=== PATIENT | male | born 1980 | race Two or more races ===

== ENCOUNTER 2023-09-19 10:02 | Outpatient (CLI) | payer OTHER | END 2023-09-19 10:03 | disposition home or self-care (01) | LOC: DI 10:02 | PROVIDERS: ATTEND Internal Medicine | DX: I63.9 Cerebral infarction, unspecified (principal) | CPT/HCPCS: 93307 ==

== ENCOUNTER 2023-09-23 14:19 | Outpatient (CLI) | payer OTHER ==
--- NOTE | 2023-09-23 16:53 | Ultrasound Report ---
PROCEDURE: Carotid Doppler Complete INDICATIONS: CVA TECHNIQUE: Color and pulse Doppler interrogation was performed of both carotid systems, with image documentation and velocity measurements. COMPARISON: None. FINDINGS: Right side: Brachial blood pressure: 123/82 mm Hg. Common carotid artery peak systolic velocity: 122 cm/sec. Internal carotid artery peak systolic velocity: 101 cm/sec. Internal carotid artery end diastolic velocity: 45 cm/sec. External carotid artery peak systolic velocity: 130 cm/sec. ICA/CCA peak systolic ratio: 0.8 . Dee scale imaging description: No visualized plaque Percent internal carotid artery stenosis: No hemodynamically significant stenosis. Vertebral artery: Flow direction is antegrade. Left side: Brachial blood pressure: 142/96 mm Hg. Common carotid artery peak systolic velocity: 87 cm/sec. Internal carotid artery peak systolic velocity: 95 cm/sec. Internal carotid artery end diastolic velocity: 42 cm/sec. External carotid artery peak systolic velocity: 97 cm/sec. ICA/CCA peak systolic ratio: 1 . Dee scale imaging description: No significant atherosclerotic plaque. Percent internal carotid artery stenosis: No hemodynamically significant stenosis. Vertebral artery: Flow direction is antegrade. IMPRESSION: 1. In the right internal carotid artery, there is no hemodynamically significant stenosis based on pe ak systolic velocity criteria. 2. In the left internal carotid artery, there is no hemodynamically significant stenosis based on pea k systolic velocity criteria. 3. Antegrade blood flow within the right vertebral artery. 4. Antegrade blood flow within the left vertebral artery. The estimate of stenosis included in the report of the imaging study was calculated using the [facility]-end orsed standards of carotid artery stenosis. Reviewed by: Kayce Siegel MD on 09/23/2023 4:52 PM PDT Approved by: Kayce Siegel MD on 09/23/2023 4:52 PM PDT Station ID: [id number]
== END 2023-09-23 14:20 | disposition home or self-care (01) ==
LOC: DI 14:19
PROVIDERS: ATTEND Internal Medicine
DX: I63.9 Cerebral infarction, unspecified (principal)
CPT/HCPCS: 93880

== ENCOUNTER 2023-11-19 20:31 | Emergency (ER) | payer OTHER ==
[2023-11-19] MEDS ORDERED: iohexoL-300 100 ML VIAL ONE (21:09)
[2023-11-19 21:20] LABS: BASOPHILS % (AUTO) 0.4 %; EOSINOPHILS # (AUTO) 0.1 10^3/uL (0.0-0.7); EOSINOPHILS % (AUTO) 1.4 %; HCT - HEMATOCRIT 42.8 % (42.0-52.0); HGB - HEMOGLOBIN 14.7 g/dL (14.0-18.0); LYMPHOCYTES # (AUTO) 2.7 10^3/uL (1.5-3.5); LYMPHOCYTES % (AUTO) 30.9 %; MEAN CORPUSCULAR HEMOGLOBIN 29.5 pg (27.0-31.0); MEAN CORPUSCULAR HGB CONC 34.3 g/dL (32.0-36.0); MEAN CORPUSCULAR VOLUME 85.8 fL (80.0-94.0); MEAN PLATELET VOLUME 10.1 fL (7.4-11.4); MONOCYTES # (AUTO) 0.5 10^3/uL (0.0-1.0); NEUTROPHILS # (AUTO) 5.2 10^3/uL (1.5-6.6); NEUTROPHILS % (AUTO) 60.7 %; PLT - PLATELET COUNT 246 10^3/uL (130-450); RED BLOOD COUNT 4.99 10^6/uL (4.70-6.10); RED CELL DISTRIBUTION WIDTH 12.5 % (12.0-15.0); WHITE BLOOD COUNT 8.6 x10^3/uL (4.8-10.8)
[2023-11-19 21:27] LABS: INR 1.3 (0.8-1.2); PT - PROTHROMBIN TIME 14.4 secs (9.9-12.6)
[2023-11-19 21:37] LABS: ALBUMIN 4.8 g/dL (3.2-5.5); ALBUMIN/GLOBULIN RATIO 1.8 (1.0-2.2); BILIRUBIN,TOTAL 0.4 mg/dL (0.2-1.0); CREATININE 0.9 mg/dL (0.6-1.3); TOTAL PROTEIN 7.5 g/dL (6.4-8.9)
[2023-11-19 21:42] VITALS: O2SAT 99
[2023-11-19] MEDS: iohexoL-300 100 ML VIAL IVP ONE (22:07)
--- NOTE | 2023-11-19 22:10 | ED Physician Documentation ---
History of Present Illness - Stated complaint Stated Complaint: FACE NUMBNESS - Chief complaint Chief Complaint: Neuro - Additonal information Additional information: 43-year-old male with history of a CVA that happened in August of this year in [facility] presents to the emergency department for intermittent facial tingling. Patient said that he is on anticholesterol medication, daily aspirin,And antihypertensives. Patient said that he just started recently doing some recent weight lifting yesterday and when he is doing some gentle bicep curls he was feeling some intermittent facial tingling to the left portion of his face. He stopped doing it and the facial tingling resolved when away. He then started doing some barbell pumps today noticed that same sensation.Patient is tingling has fully resolved he has no other neurological symptoms no weakness on one side of the body able to speak without any difficulty no other symptoms. Currently right now patient has no facial tingling or numbness. PD PAST MEDICAL HISTORY - Past Medical History Past Medical History: Yes Neuro: CVA : Kidney stones - Past Surgical History Past Surgical History: Yes - Present Medications Home Medications: Ambulatory Orders Medication Instructions Recorded Confirmed Aspirin Chewable [[facility] Timothy 81 mg PO DAILY 11/19/23 11/19/23 Aspirin] Blood Pressure Meds 11/19/23 Cholesterol Meds 11/19/23 Lisinopril [Zestril] 10 mg PO DAILY 11/19/23 11/19/23 Simvastatin [Zocor] 10 mg PO DAILY 11/19/23 11/19/23 - Allergies Allergies/Adverse Reactions: Allergies Allergy/AdvReac Type Severity Reaction Status Date / Time No Known Drug Allergies Allergy Verified 11/19/23 20:44 - Social History Does the pt smoke?: No Smoking Status: Never smoker Does the pt drink ETOH?: No Does the pt have substance abuse?: No - Immunizations Immunizations are current?: Yes - POLST Patient has POLST: No PD ED PE NORMAL - Vitals Vital signs reviewed: Yes - General General: Alert and oriented X 3, No acute distress, Well developed/nourished - HEENT HEENT: Atraumatic, PERRL, EOMI - Neck Neck: Supple, no meningeal sign - Cardiac Cardiac: RRR - Respiratory Respiratory: No respiratory distress - Derm Derm: Normal color, Warm and dry, No rash - Extremities Extremities: No edema, No calf tenderness / cord - Neuro Neuro: Alert and oriented X 3, 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 No: Weakness, Abnormal sensation, Nystagmus Results - Vitals Vitals: Vital Signs - 24 hr 11/19/23 23:00 Heart Rate 72 Respiratory 14 Rate Blood Pressure 125/75 O2 Saturation 99 Oxygen O2 Source Room air - Labs Labs: Laboratory Tests 11/19/23 11/19/23 11/19/23 21:14 21:14 21:14 WBC 8.6 RBC 4.99 Hgb 14.7 Hct 42.8 MCV 85.8 MCH 29.5 MCHC 34.3 RDW 12.5 Plt Count 246 MPV 10.1 Neut # (Auto) 5.2 Lymph # (Auto) 2.7 [place] # (Auto) 0.5 Eos # (Auto) 0.1 Baso # (Auto) 0.0 Absolute Nucleated RBC 0.00 Nucleated RBC % 0.0 PT 14.4 H INR 1.3 H Sodium 137 Potassium 4.0 Chloride 105 Carbon Dioxide 26 Anion Gap 6.0 BUN 24 H Creatinine 0.9 Estimated GFR (MDRD) 93 Glucose 100 Calcium 10.0 Total Bilirubin 0.4 AST 23 ALT 23 Alkaline Phosphatase 75 Total Protein 7.5 Albumin 4.8 Globulin 2.7 Albumin/Globulin Ratio 1.8 Lipase 57 PD Medical Decision Making - ED course ED course: 43-year-old male presents emerged part for left facial numbness and tingling that happens only with exertional exercise/activity. He denies any numbness or tingling to his face right now. His main concern was that he could be experiencing a stroke again given his recent CVA. He does have a neurologist and has an MRI appointment coming up outpatient. Labs are complete for further evaluation no leukocytosis, PT 14.4, INR 1.3, no electrolyte abnormalities. CT head was ordered as well as CT head and neck angio for further evaluation. Report given to Dr. Shah will be further managing the patient's care and will report CT head and CT angio head and neck to the patient and give him discharge instructions and plan pending results. Departure - Departure Disposition: 01 Home, Self Care Clinical Impression: Facial numbness, Paresthesia Condition: Good Instructions: ED Paraesthesias Follow-Up: your,doctor in 1 week [Other] Comments: Your your head CT and CT angiogram of your head and neck do not show any acute abnormalities today. There is no signs of stroke, arterial blockage or problems with your arteries. You should have an MRI with your doctor. Please return if you worsen. Forms: PCP List Discharge Date/Time: 11/19/23 22:59
--- NOTE | 2023-11-19 22:33 | CT Report ---
PROCEDURE: Head WO INDICATIONS: L facial numbness TECHNIQUE: Noncontrast 4.5 mm thick angled axial sections acquired from the foramen magnum to the vertex. For r adiation dose reduction, the following was used: automated exposure control, adjustment of mA and/or kV according to patient size. COMPARISON: None. FINDINGS: Image quality: Diagnostic. CSF spaces: Basal cisterns are patent. No extra-axial fluid collections. Ventricles are normal in size and shape. Brain: No midline shift. No intracranial masses or hemorrhage. Dee-white matter interface is norm al. Skull and face: Calvarium and visualized facial bones are intact, without suspicious lesions. Sinuses: Visualized sinuses and mastoids are clear. IMPRESSION: No acute intracranial pathology. Reviewed by: Marielle Alvarado MD, PhD on 11/19/2023 10:32 PM PDT Approved by: Marielle Alvarado MD, PhD on 11/19/2023 10:32 PM PDT Station ID: [id number]
--- NOTE | 2023-11-19 22:36 | CT Report ---
PROCEDURE: Angio Head/Neck INDICATIONS: L facial numbness TECHNIQUE: After the administration of intravenous contrast, 1 mm thick sections acquired from the aortic arch t hrough the [place] of [place]. 3-dimensional whnmhpq-wrikusgsg-eusphucgsb (MIP) and/or volume renderin g reformats were acquired of the central intracranial vasculature and neck separately. For radiation dose reduction, the following was used: automated exposure control, adjustment of mA and/or kV acco rding to patient size. CONTRAST: 80ml [id number] COMPARISON: Same day CT head noncontrast 11/19/2023. FINDINGS: Image quality: Diagnostic. HEAD CT: CSF Spaces: Basal cisterns are patent. No extra-axial fluid collections. Ventricles are normal in size and shape. Brain: No significant abnormality is seen for scanning technique. Skull and face: Calvarium and visualized facial bones appear intact, without suspicious lesions. Sinuses: Visualized sinuses and mastoids are clear. HEAD CT ANGIOGRAPHY: Anterior circulation: Intracranial internal carotid arteries are normal in size and flow. The flow within the paired anterior cerebral arteries is normal and symmetric. The flow within the middle cer ebral arteries is normal and symmetric. The anterior communicating artery is seen. No aneurysms are seen. Posterior circulation: Visualized portions of the vertebral arteries demonstrate normal caliber, and join to form a normal appearing basilar artery. origin of the left TOE STAPLER. Flow within the chemical operator ior cerebral arteries is normal and symmetric. No aneurysms are seen. NECK CT ANGIOGRAPHY: Carotid system: The great vessels demonstrate a conventional anatomy as they arise from the aortic a rch. The origins of the common carotid arteries appear patent. The common carotid arteries demonstr ate normal caliber and courses. The bifurcation regions are both widely patent. The internal caroti d arteries demonstrate normal calibers and courses. Posterior circulation: The origins of the vertebral arteries both appear widely patent. The more collins perior extracranial portions of both vertebral arteries also demonstrate normal courses and calibers. They join to form a normal appearing basilar artery. Soft tissues: Visualized neck soft tissues demonstrate no suspicious abnormalities. Bones: No suspicious bony lesions. Visualized cervical spine appears normally aligned. IMPRESSION: No significant intracranial arterial abnormality is seen. No significant abnormality is seen within the arteries of the neck. The estimate of stenosis included in the report of the imaging study was calculated using the NASCET method Reviewed by: Marielle Alvarado MD, PhD on 11/19/2023 10:35 PM PDT Approved by: Marielle Alvarado MD, PhD on 11/19/2023 10:35 PM PDT Station ID: [id number]
--- NOTE | 2023-11-19 22:44 | ED Physician Documentation ---
ED Addendum - Addendum Addendum: 11/19/23 22:42 Patient was signed out to me by Ned Oliveros, please see her note for full H&P on this patient. Patient was signed out awaiting angiogram head and neck as well as head CT. There are no acute findings on these results. Patient is asymptomatic here. Has an MRI scheduled already. Will have him follow-up with his doctor for further care. Patient will return if he worsens. Departure - Departure Disposition: 01 Home, Self Care Clinical Impression: Facial numbness, Paresthesia Condition: Good Instructions: ED Paraesthesias Follow-Up: your,doctor in 1 week [Other] Comments: Your your head CT and CT angiogram of your head and neck do not show any acute abnormalities today. There is no signs of stroke, arterial blockage or problems with your arteries. You should have an MRI with your doctor. Please return if you worsen. Forms: PCP List
[2023-11-19 23:03] VITALS: BP 125/75
== END 2023-11-19 22:59 | disposition home or self-care (01) ==
LOC: ED 20:31
DX: R20.0 Anesthesia of skin (principal); R20.2 Paresthesia of skin; Z86.73 Personal history of transient ischemic attack (TIA), and cerebral infarction without residual deficits; Z79.82 Long term (current) use of aspirin; Z79.899 Other long term (current) drug therapy
CPT/HCPCS: 36415; 80053; 83690; 85025; 85610; 93005; 99283; 99284